=== PATIENT | male | born 1955 | race Caucasian/White ===

== ENCOUNTER 2024-07-23 11:46 | Day surgery (SDC) | payer MEDICARE, BC, SELFPAY ==
[2024-07-23] VITALS (9 sets, daily range): BP systolic 133–147; BP diastolic 76–94; PULSE 81–93; RESP 15–18; TEMP 36.3–36.6; O2SAT 92–100; BMI 28.3
--- NOTE | 2024-07-23 12:04 | HP.PCM_ITS ---
HPI - General General Date of Service: 07/23/24 Chief Complaint: bladder mass HPI Narrative OK ZHANG, is a 69 M who presents for resection [facility].
[2024-07-23] MEDS: 0.9% Normal Saline (1000mL) 1,000 ML 15 ML IV (12:30)
--- NOTE | 2024-07-23 12:47 | PCM.PRE.AN2 ---
ASA Classification* ASA Classification ASA Classification: 2 Assessment & Plan Anesthesia* Anesthesia Assessment Anesthesia Assessment: Discussed sedation and/or anesthesia options, risks, benefits, and alternatives with patient/parents/legal guardian/POA. Questions invited. The patient/parents/legal guardian/POA seems to understand and agrees to proceed with anesthesia plan. Reviewed the physical assessment, medical history, allergy history and patient home medications list prior to surgery/procedure/anesthetic and documented any changes. Performed airway and anesthesia risk assessments. Anesthesia Type Anesthesia Type: General (RSI food around 7 am) Anesthesia Focused Assessment* Temperature: 97.6 F Pulse Rate: 93 Blood Pressure: 147/83 Respiratory Rate: 16 Pulse Ox: 100 Airway Assessment Mouth opens: >3 cm Mallampati Score: II Focused Labs Anesthesia Preop lab: CBC CHEMISTRY COAG Pre-Assessment Diagnosis/Proposed Procedure Planned Operative Procedure(s): turb Anesthesia History Anesthesia History - maintenance planner: Anesthesia History - maintenance planner Hx Hospitalization No 07/23/24 12:21 Any Problems With Anesthesia No 07/23/24 12:21 Cholinesterase deficiency No 07/23/24 12:21 You/Your Family Experience No 07/23/24 12:21 fever (hyperthermia) with Relationship Recent Exposure to Contagious No 07/23/24 12:18 Disease Does patient have nerve No 07/23/24 12:21 stimulator Patient instructed to have device shut off --Does patient have Pacemaker No 07/23/24 12:18 or ICD? When Was Last Pacemaker Check QUESTION #4 FULL TEXT: You/Your Family Experience fever (hyperthermia) with Anesthesia Last Oral Intake Last Oral intake: Last Oral Intake NPO since Meds taken in AM with sips of water? Meds patient instructed to take am of surgery PONV PONV - maintenance planner: PONV - maintenance planner Female No 07/23/24 12:21 HX of Motion Sickness No 07/23/24 12:21 HX of N/V After Surgery No 07/23/24 12:21 Non-Smoker No 07/23/24 12:21 Duration of Surgery greater Yes 07/23/24 12:21 than 60 minutes Number of Risk Factors 1 07/23/24 12:21 PONV Score Low Risk 07/23/24 12:21 Height & Weight Height & Weight: Anesthesia: Height & Weight Height 6 ft 07/23/24 12:18 Weight: 94.6 kg 07/23/24 12:18 Body Mass Index (BMI) 28.3 07/23/24 12:18 Respiratory Assessment Respiratory Assessment - maintenance planner: Respiratory Tract Infection Hx - maintenance planner Hx Respiratory Tract Infection No 07/23/24 12:21 STOP Sleep Apnea STOP Sleep Apnea - maintenance planner: STOP Sleep Apnea - maintenance planner Hx Hypertension No 07/23/24 12:21 Hx Sleep Apnea No 07/23/24 12:21 CPAP BIPAP Do you snore loudly (louder No 07/23/24 12:21 than talking or can be heard Do you often feel tired/ No 07/23/24 12:21 fatigued/ sleepy during daytime? Has anyone observed you stop No 07/23/24 12:21 breathing during sleep? STOP Results Negative 07/23/24 12:21 QUESTION #5 FULL TEXT : Do you snore loudly (louder than talking or can be heard through closed doors)? Tobacco Use History Tobacco Use History - maintenance planner: Tobacco Use History - maintenance planner Tobacco Use Smoking Status Current every day smoker 07/23/24 12:21 Hx Tobacco Use Yes 07/23/24 12:21 Years Smoking Packs Smoked per Day 1 07/23/24 12:21 Smoking Cessation Date was within the last 15 years Hx Smoking Cessation Date Hx Smoking Cessation Counseling Hematologic Medial History Hematologic Hx - maintenance planner: Hematologic Medical Hx - mop man Hx of Blood Transfusion No 07/23/24 12:21 Hx of Transfusion in last 3 No 07/23/24 12:21 Months Date of Last Transfusion (if within last 3 months) Ever experience any problems No 07/23/24 12:21 with transfusion(s)? Specify any problems Hx of Preganancy in last 3 N/A 07/23/24 12:21 Months Nurse Filling Out Transfusion NBUCHER 07/23/24 12:21 & Questions: Date: 07/23/24 07/23/24 12:21 Time: 12:21 07/23/24 12:21 Patient unable to answer at this time (ie. confused, unrespo /Reproduction History /Reproductive History - maintenance planner: /Reproductive Hx- maintenance planner Hx Now No 07/23/24 12:21 Gestational Age (in weeks): EDC: Hx Hx Para Hx Section SAB No 07/23/24 12:21 Active Medications Active Medications: Current Medications Generic Name Dose Route Start Last Admin Trade Name Freq PRN Reason Stop Dose Admin Sodium Chloride 1,000 mls @ 15 mls/hr 07/23/24 12:05 IV 07/29/24 01:24 .Q48H [facility] Protocol PFSH Medical History Arthritis Wears glasses Wears dentures Smoker No natural teeth Home Medications ?Medication ?Instructions ?Recorded ?Last Taken ?Type NK 07/23/24 Unknown History Allergy/AdvReac Type Severity Reaction Status Date / Time No Known Allergies Allergy Verified 07/23/24 12:08 Surgical History History of elbow surgery (~2021) History of appendectomy (~1989) Social History Smoking Status: Current every day smoker tobacco type: cigarettes Review of Systems (Anesthesia) ROS Narrative System reviewed and no additional complaints, except as documented.
--- NOTE | 2024-07-23 13:00 | BLB_PTH ---
PATIENT: OK ZHANG LOC: [facility] U#:[id number] AGE/SX: 69/M ROOM: RE07/23/[address]: Dr. Jasvir Najera MD : 1955 BED: DIS: 07/23/2024 SPEC #: [id number] RECD: 07/23/24 14:20 STATUS: JJ KANU #: [id number] NORMA: 07/23/24 13:[address]: Jasvir Najera DEPT: SURGICAL PATHOLOGY RECD BY: Lisa Geronimo ENTERED: 07/24/24 10:50 SP TYPE: TURB OTHR DR: No Primary Care Phys Tissues: Urinary bladder, NOS Procedures: Surgery Specimen Level V HEADER OPERATION: Transurethral resection bladder PRE-OP DIAGNOSIS: Bladder mass TISSUE SUBMITTED: Bladder tumor and clots MICROSCOPIC DIAGNOSIS Bladder tumor and clots, transurethral resection: Noninvasive papillary urothelial carcinoma. See cancer summary in the comment section. SJ.mr 07/25/2024 COMMENT BLADDER CANCER (TUR) SUMMARY Procedure: Transurethral resection of bladder tumor (TURBT) Tumor site: Not specified Histologic type: Papillary urothelial carcinoma, noninvasive Associated epithelial lesions: None identified Histologic grade: Low grade (1/3) Tumor configuration: Papillary Muscularis propria presence: muscularis propria (detrusor muscle) present and free of tumor Lymphvascular invasion: Not identified Tumor extension: Non-invasive papillary carcinoma. Additional pathologic findings: Numerous blood clots. PATHOLOGIC STAGE: marketing area manager pNx pMx The above summary is in compliance with [employer] (CAP) Cancer Protocols Checklist and [place] [employer] Committee on Cancer (AJCC), Staging Manual, 8th Ed. MICROSCOPIC DESCRIPTION Slides are reviewed. GROSS DESCRIPTION Received in fixative is one container labeled with the patient's name and designated Bladder tumors and clots. The specimen consists of multiple blood clots mixed with a few fragments of dykes-white tissue measuring in aggregate 6.0 x 6.0 x 2.0cm. The entire specimen is submitted in ten cassettes. Cassette 1 contains most of the pieces of dykes-white tissue. SJ.mr 07/24/2024 TC:0 CPT:93703
[2024-07-23] MEDS: Cefazolin 2 GM in Syringe IV (13:19)
--- NOTE | 2024-07-23 13:20 | PCM.DC ---
Discharge Instructions Diet Discharge Diet: Light diet - advance as tolerated, Soft diet and Low fat / Low cholesterol DC O2, CPAP, BIPAP needs Home O2 Discharge instructions: No Dressing / Incision Discharge Activity: Return to Normal Activity Return to work on:: 07/26/24 May shower in (days): 1 May resume sexual activity in: No Restrictions Dressing / Incision Call your doctor if you observe: Fever of 101 or Higher, Inability to urinate and Uncontrolled pain Suture Line Care: Avoid Pulling/Pushing and Avoid Pinching/Bending Follow Up Care Please Follow Up With: Jasvir Najera MD When: 2 weeks. Test Results: Test results from this visit will be discussed in further detail at your follow-up appointment, if applicable. Discharge Plan Admission Primary Reason for Your Visit: resection of bladder tumor Attending Provider: Jasvir Najera Primary Care Provider: Care Physician,No Primary Instructions Print Language: [place] Discharge Orders/Prescriptions Prescriptions: New ciprofloxacin HCl [Cipro] 500 mg tablet 500 mg PO BID Qty: 10 0RF oxycodone 5 mg tablet 5 mg PO Q6H PRN (Reason: pain) 3 Days Qty: 14 0RF Referrals / Follow Up: Jasvir Najera MD [Med Staff - Active Staff] - Care Physician,No Primary [Primary Care Provider] - Disposition Disposition (needs filled in before D/C Order can be placed): Home, Self Care
--- NOTE | 2024-07-23 13:54 | PCM.OPRPT ---
Operative Report (Standard) Operative Information Date of Procedure: 07/23/24 Pre-Operative Diagnosis: Large bladder tumor, 5 cm Post-Operative Diagnosis: The same Surgery/Procedure Performed: Transurethral resection of a large bladder tumor database administrator: No Type of Anesthesia: General RN Documented Start/Stop Times: Operation Date: 07/23/24 13:00 Case Time Into Pre-Op 07/23/24 12:00 Out of Pre-Op 07/23/24 13:17 Anesthesia Start 07/23/24 13:19 Into Room 07/23/24 13:19 Procedure Start 07/23/24 13:35 Procedure Start Time: 13:35 Procedure Stop Time: 13:55 Select all DRAINS/GRAFTS/IMPLANTS that apply: None Estimated Blood Loss: 10cc Specimen collected: Yes Description of specimen(s) removed: Bladder tumor Description of surgery: Patient was taken back to the operating room at the smooth induction of anesthesia he was placed in dorsolithotomy position. The penis testicles were prepped and draped in usual sterile fashion. It went into the bladder with a 24 Wolof Olympus bipolar resectoscope I first elected all of the clots in the bladder identified identified a large 5 mm tumor in the back of the bladder posterior wall appeared to be noninvasive and it was a bleeding tumor it was away from both ureteral orifices there is also some tiny satellite sites in the posterior wall of the bladder some reddish areas in the dome of the wall of the bladder. I then resected the tumor completely it appeared to be T1 invasion tumor but not into the muscle I then cauterized the other sites. After the tumor was completely resected all the chips were Ellik out, pathology was sent bladder was drained there was no signs of bleeding and patient has headache is being reversed and I will see him back in 2 weeks for postop visit. Probably will need BCG therapy. Surgical Findings: Large bladder tumor was resected completely pieces sent for pathology Complications Complications: No Admit VTE Documentation VTE Present on Admission: No VTE Mechan Device Prophylaxis: SCD's VTE Pharm Prophylaxis ordered?: No
--- NOTE | 2024-07-23 14:06 | PCM.POST.ANE ---
Anesthesia: Postop Eval I Current Vital Signs Temperature: 97.8 F Pulse Rate: 86 Blood Pressure: 133/90 Respiratory Rate: 15 Pulse Ox: 95 Oxygen Delivery Method: Room Air Assessment Airway patent: Yes Spontaneous unlabored respirations: Yes Mental status: Awake and Calm nausea: No Vomiting: No Anesthesia Complication: No Fluid Hydration Crystalloid volume administer (ml): 1,000 Total IV fluid infused: 1,000 Progress Note Anesthesia document: Postop Eval 1 completed: Yes
--- NOTE | 2024-07-23 17:25 | POSTOPAN2_ITS ---
Anesthesia Postop Eval I Sum Postop Eval Completion status Anesthesia document: Postop Eval 1 completed: Yes Anesthesia Postop Eval I Summary Anesthesia Postop Eval I Summary: Anesthesia Postop Eval I: Assessment Summary Airway patent Yes 07/23/24 14:06 [email or web address] Spontaneous unlabored Yes 07/23/24 14:06 [email or web address] [email or web address] respirations Mental status Awake,Calm 07/23/24 14:06 [email or web address] [email or web address] nausea No 07/23/24 14:06 [email or web address] [email or web address] Vomiting No 07/23/24 14:06 [email or web address] [email or web address] Anesthesia Postop Eval I: Fluid Summary Crystalloid volume administer 1,000 07/23/24 14:06 [email or web address] [email or web address] (ml) Colloids volume administered ( ml) Blood Product volume administered (ml) Total IV fluid infused 1,000 07/23/24 14:06 [email or web address] [email or web address] Anesthesia Postop Eval I: Summary Notes Anesthesia Complication No 07/23/24 14:06 [email or web address] [email or web address] Anesthesia Complication Comment: Post-operative progress note Anesthesia: Postop Eval II Evaluation Mental status: Awake Pain Level: 2 nausea: No Vomiting: No
--- NOTE | 2024-07-23 17:25 | PCM.POSTANE2 ---
Anesthesia Postop Eval I Sum Postop Eval Completion status Anesthesia document: Postop Eval 1 completed: Yes Anesthesia Postop Eval I Summary Anesthesia Postop Eval I Summary: Anesthesia Postop Eval I: Assessment Summary Airway patent Yes 07/23/24 14:06 PARTY [email or web address] Spontaneous unlabored Yes 07/23/24 14:06 PARTY [email or web address] respirations Mental status Awake,Calm 07/23/24 14:06 PARTY [email or web address] nausea No 07/23/24 14:06 PARTY [email or web address] DRIVER.[email or web address] Vomiting No 07/23/24 14:06 PARTY [email or web address] DRIVER.[email or web address] Anesthesia Postop Eval I: Fluid Summary Crystalloid volume administer 1,000 07/23/24 14:06 PARTY [email or web address].[email or web address] (ml) Colloids volume administered ( ml) Blood Product volume administered (ml) Total IV fluid infused 1,000 07/23/24 14:06 PARTY [email or web address].[email or web address] Anesthesia Postop Eval I: Summary Notes Anesthesia Complication No 07/23/24 14:06 PARTY [email or web address] Anesthesia Complication Comment: Post-operative progress note Anesthesia: Postop Eval II Evaluation Mental status: Awake Pain Level: 2 nausea: No Vomiting: No
== END 2024-07-23 15:15 | disposition home or self-care (01) ==
LOC: SDC 11:58 → AC 12:05
PROVIDERS: Referring Provider Urology; Visit Provider Urology
PROC: 0TBB8ZZ Excision of Bladder, Via Natural or Artificial Opening Endoscopic (ICD-10-PCS; CPT 52235; principal; 2024-07-23 12:50)
DX: C67.4 Malignant neoplasm of posterior wall of bladder (principal); F17.210 Nicotine dependence, cigarettes, uncomplicated
CPT/HCPCS: 52235; 00912; 88307; J2405

== ENCOUNTER → 2024-12-17 | Outpatient (CLI) | payer MEDICARE, BC, SELFPAY ==
--- NOTE | 2024-12-17 10:10 | FLU_PTH ---
PATIENT: OK ZHANG LOC: [facility] U#:[id number] AGE/SX: 69/M ROOM: RE12/17/[address]: Dr. Jasvir Najera MD : 1955 BED: DIS: 12/17/2024 SPEC #: [id number] RECD: 12/17/24 12:00 STATUS: JJ REDejah #: [id number] NORMA: 12/17/24 10:[address]: Jasvir Najera DEPT: CYTOLOGY RECD BY: Giovanny Enciso ENTERED: 12/18/24 11:07 SP TYPE: Fluid OTHR DR: No Primary Care Phys Tissues: Urine Procedures: Special Stain Group II Surgery Specimen Level IV Cytospin Fluid HEADER OPERATION: Not noted PRE-OP DIAGNOSIS: Malignant neoplasm of lateral wall of bladder TISSUE SUBMITTED: A- Urine for cytology DIAGNOSIS CYTOLOGY A. Urine, nos (cytospin): * No malignant cells identified. CYTOLOGY STUDY Slides are reviewed. CYTOLOGY GROSS A. Received is 80 ml of yellow-cloudy fluid labeled with the patient's name and and designated per the requisition as urine. Submitted for cytology preparation. Mr 12/18/2024 CPT: 62782
[2024-12-17 16:27] LABS: Cytology, Body Fluid / CSF SEE PATHOLOGY REPORT
== END | disposition home or self-care (01) ==
LOC: LABSPEC 16:05
PROVIDERS: Referring Provider Urology; Visit Provider Urology
DX: C67.2 Malignant neoplasm of lateral wall of bladder (principal)
CPT/HCPCS: 88108; 88305; 88313